=== PATIENT | male | born 1970 ===

== ENCOUNTER 2025-07-08 12:11 | Outpatient (REF) | payer MEDICARE, SELFPAY ==
[2025-07-08 15:41] LABS: EPI 027-NAP1-B1 PRESUMPTIVE NEGATIVE
[2025-07-09 12:28] LABS: Campylobacter PCR Negative (Negative); Shiga Toxin PCR Negative (Negative); Shigella/Enteroinvasive Ecoli Negative (Negative)
== END 2025-07-08 12:12 | disposition home or self-care (01) ==
LOC: LBN 12:11
PROVIDERS: PCP Family Medicine; Visit Provider Internal Medicine Hematology & Oncology
DX: R19.7 Diarrhea, unspecified (principal)
CPT/HCPCS: 87015; 87269; 87272; 87505

== ENCOUNTER 2025-08-04 02:12 | Outpatient (RCR) | payer MEDICARE, SELFPAY ==
[2025-07-08] MEDS: Normal Saline Flush 10 ML SYR IVP (07:34)
[2025-07-08 07:55] LABS: Abs Immature Grans 0.02 10^3/uL (0.0-0.06); HCT 35.4 % (40.0-50.0); HGB 12.4 g/dL (13.5-17.5); MCH 30.0 pg (27.0-33.0); MCHC 35.0 % (32.0-36.0); MCV 86 fL (80-95); MPV 9.2 fL (8.0-11.0); Platelet Count 231 10^3/uL (130-400); RBC 4.13 10^6/uL (4.36-5.78); RDW 13.9 % (11.8-14.1); RDW-SD 42.7 fL; WBC 4.84 10^3/uL (4.4-10.8)
[2025-07-08 08:25] LABS: Immature Grans % 0.0 %
[2025-07-08 08:26] LABS: RBC Morphology Normal
[2025-07-08 08:28] LABS: ALT 32 U/L (10-49); AST 33 U/L (<34); Albumin 3.7 g/dL (3.2-5.0); Alkaline Phosphatase 102 U/L (46-116); Anion Gap 7.1 mmol/L (3-11); BUN 10 mg/dL (9-23); Bilirubin, Total 0.90 mg/dL (0.2-1.2); CO2 27.9 mmol/L (20.0-31.0); Calcium 8.6 mg/dL (8.3-10.6); Chloride 105 mmol/L (98-107); Glucose 97 mg/dL (74-106); Potassium 3.3 mmol/L (3.5-5.1); Sodium 140 mmol/L (136-145); Total Protein 6.2 g/dL (5.7-8.2)
[2025-07-09 11:20] LABS: CA 19-9 41 U/mL (<35)
[2025-07-15] MEDS: Normal Saline Flush 10 ML SYR IVP (07:30)
[2025-07-15 08:02] LABS: Abs Immature Grans 0.04 10^3/uL (0.0-0.06); HCT 34.9 % (40.0-50.0); HGB 12.1 g/dL (13.5-17.5); Immature Grans % 0.7 %; MCH 30.9 pg (27.0-33.0); MCHC 34.7 % (32.0-36.0); MCV 89 fL (80-95); MPV 9.3 fL (8.0-11.0); Platelet Count 224 10^3/uL (130-400); RBC 3.92 10^6/uL (4.36-5.78); RDW 14.6 % (11.8-14.1); RDW-SD 46.8 fL; WBC 6.11 10^3/uL (4.4-10.8)
[2025-07-15 08:19] LABS: ALT 28 U/L (10-49); AST 23 U/L (<34); Albumin 3.5 g/dL (3.2-5.0); Alkaline Phosphatase 77 U/L (46-116); Anion Gap 8.3 mmol/L (3-11); BUN 15 mg/dL (9-23); Bilirubin, Total 0.6 mg/dL (0.2-1.2); CO2 27.7 mmol/L (20.0-31.0); Calcium 8.5 mg/dL (8.3-10.6); Chloride 108 mmol/L (98-107); Glucose 90 mg/dL (74-106); Potassium 3.7 mmol/L (3.5-5.1); Sodium 144 mmol/L (136-145); Total Protein 6.1 g/dL (5.7-8.2)
[2025-07-16 09:24] LABS: CA 19-9 44 U/mL (<35)
[2025-07-17] MEDS: Normal Saline Flush 10 ML SYR IVP (12:45)
[2025-08-04 08:48] LABS: Abs Immature Grans 0.01 10^3/uL (0.0-0.06); HCT 39.3 % (40.0-50.0); HGB 13.2 g/dL (13.5-17.5); Immature Grans % 0.2 %; MCH 31.6 pg (27.0-33.0); MCHC 33.6 % (32.0-36.0); MCV 94 fL (80-95); MPV 9.2 fL (8.0-11.0); Platelet Count 217 10^3/uL (130-400); RBC 4.18 10^6/uL (4.36-5.78); RDW 14.3 % (11.8-14.1); RDW-SD 49.2 fL; WBC 4.66 10^3/uL (4.4-10.8)
[2025-08-04 09:06] LABS: ALT 32 U/L (10-49); AST 28 U/L (<34); Albumin 3.9 g/dL (3.2-5.0); Alkaline Phosphatase 82 U/L (46-116); Anion Gap 7.6 mmol/L (3-11); BUN 11 mg/dL (9-23); Bilirubin, Total 0.4 mg/dL (0.2-1.2); CO2 27.4 mmol/L (20.0-31.0); Calcium 9.0 mg/dL (8.3-10.6); Chloride 109 mmol/L (98-107); Glucose 95 mg/dL (74-106); Potassium 3.9 mmol/L (3.5-5.1); Sodium 144 mmol/L (136-145); Total Protein 6.7 g/dL (5.7-8.2)
[2025-08-04] MEDS: Normal Saline Flush 10 ML SYR IVP (09:16)
[2025-08-04 18:45] LABS: CA 19-9 47 U/mL (<35)
== END 2025-08-04 23:59 | disposition home or self-care (01) ==
LOC: INF 02:12
PROVIDERS: Nurse Practitioner Family; PCP Family Medicine; Visit Provider Internal Medicine Hematology & Oncology
DX: C25.9 Malignant neoplasm of pancreas, unspecified (principal); Z45.2 Encounter for adjustment and management of vascular access device
CPT/HCPCS: 36591; 80053; 96523; 85025; 86301